=== PATIENT | male | born 1965 | race Hispanic/Latino ===

== ENCOUNTER 2018-02-12 11:30 | Emergency (ER) | payer SELFPAY ==
--- NOTE | 2018-02-12 13:59 | EKG ---
Test Date: 2018-02-12 Test Time: 11:55:25 [employer] Program Coordinator: LUIS M MEASUREMENT RESULTS: Intervals: Rate: 69 [place]: 160 QRSD: 98 QT: 378 QTc: 405 [place]: P: 76 [place]: 160 QRS: 85 T: 69 INTERPRETIVE STATEMENTS: Normal sinus rhythm Incomplete right bundle branch block Borderline ECG Compared to ECG 06/29/2016 00:47:11 No significant changes Electronically Signed On 02-12-18 13:58:34 CDT by Alexei Warner
[2018-02-12 14:21] LABS: Absolute Lymphocytes (CBC) 1.7 K/uL (0.7-4.9); Absolute Monocytes 0.6 K/uL (0.1-1.3); Absolute Neutrophil 5.1 K/uL (1.8-8.0); Basophils % 0.7 % (0-1.3); Eosinophils % 2.4 % (0-4.4); Hematocrit 41.7 % (39.6-49.0); Lymphocytes % 22.1 % (15.3-44.8); MCH 31.4 pg (27.0-35.0); MPV 8.7 fL (7.6-11.3); Monocytes % 7.8 % (3.3-12.3); RBC Red Blood Cell Count 4.59 M/uL (4.33-5.43)
[2018-02-12 14:50] LABS: ALT/SGPT 22 U/L (12-78); AST/SGOT 18 U/L (15-37); Albumin 3.7 g/dL (3.4-5.0); Alkaline Phosphatase 63 U/L (45-117); BUN Blood Urea Nitrogen 13 mg/dL (7-18); Bicarbonate 30 mmol/L (21-32); Bilirubin Direct 0.1 mg/dL (0-0.2); Bilirubin Total 0.6 mg/dL (0.2-1.0); CKMB Creatine Kinase MB < 1.0 ng/mL (0.3-3.6); Creatine Phosphokinase 43 U/L (39-308); Glucose Level 85 mg/dL (74-106); NT PRO-BNP 21 pg/mL (<125); Potassium 3.9 mmol/L (3.5-5.1); Protein, Total 7.7 g/dL (6.4-8.2); Sodium Level 142 mmol/L (136-145)
--- NOTE | 2018-02-12 15:01 | RAD REPORT ---
EXAM DESCRIPTION: RAD - Chest Single View - 02/12/2018 2:33 pm CLINICAL HISTORY: CHEST PAIN Chest pain. COMPARISON: Chest Single View dated 06/29/2016 FINDINGS: Portable technique limits examination quality. The lungs are grossly clear. The heart is normal in size. No displaced fractures. IMPRESSION: No acute intrathoracic process suspected.
--- NOTE | 2018-02-12 15:53 | ER ---
Nurse's Notes [facility] Name: Luiz Barboza Age: 53 yrs Sex: Male : 1965 Arrival Date: 02/12/2018 Time: 11:33 Bed 14 Private MD: Diagnosis: Essential (primary) hypertension Presentation: 02/12 11:54 Presenting complaint: Patient states: BP- 189/103 at home; reports lightheadness and hj dizzy; denies nausea and vomiting; denies hx of HTN;. Transition of care: patient was not received from another setting of care. Onset of symptoms was February 12, 2018. Risk Assessment: Do you want to hurt yourself or someone else? Patient reports no desire to harm self or others. Initial Sepsis Screen: Does the patient meet any 2 criteria? No. Patient's initial sepsis screen is negative. Does the patient have a suspected source of infection? No. Patient's initial sepsis screen is negative. Care prior to arrival: None. 11:54 Method Of Arrival: Ambulatory 11:54 Acuity: SILVA 3 hj Triage Assessment: 11:56 General: Appears in no apparent distress. uncomfortable, Behavior is calm, cooperative, hj appropriate for age. Pain: Denies pain. Historical: - Allergies: 11:56 No Known Allergies; hj - Home Meds: 11:56 None [Active]; hj - PMHx: 11:56 testicular cancer; hj - PSHx: 11:56 TESTICLUAR CANCER; hj - Immunization history:: Adult Immunizations up to date. - Social history:: Smoking status: Patient/guardian denies using tobacco, Patient/guardian denies using alcohol. - Ebola Screening: : Patient negative for fever greater than or equal to 101.5 degrees Fahrenheit, and additional compatible Ebola Virus Disease symptoms Patient denies exposure to infectious person Patient denies travel to an Ebola-affected area in the 21 days before illness onset. Screenin:56 Abuse screen: Denies threats or abuse. Denies injuries from another. Nutritional hj screening: No deficits noted. Tuberculosis screening: No symptoms or risk factors identified. Fall Risk None identified. Assessment: 14:08 General: Appears in no apparent distress. comfortable, Behavior is calm, cooperative, aj appropriate for age. Neuro: Level of Consciousness is awake, alert, obeys commands, Oriented to person, place, time, situation, Appropriate for age. Cardiovascular: Reports Chest pain and dizziness 2 days ago. Respiratory: Airway is patent Respiratory effort is even, unlabored, Respiratory pattern is regular, symmetrical. Derm: Skin is intact, is healthy with good turgor, Skin is pink, warm \T\ dry. normal. Vital Signs: 11:56 BP 140 / 92; Pulse 79; Resp 18; Temp 98.1(O); Pulse Ox 98% on R/A; Weight 58.97 kg; hj Height 5 ft. 5 in. (165.10 cm); Pain 0/10; 14:08 BP 145 / 85; Pulse 49; Resp 20; Pulse Ox 100% on R/A; aj 15:22 BP 152 / 79; Pulse 53; Resp 16; Pulse Ox 100% on R/A; aj 16:27 BP 148 / 83; Pulse 58; Resp 20; Pulse Ox 99% on R/A; aj 11:56 Body Mass Index 21.63 (58.97 kg, 165.10 cm) hj ED Course: 11:33 Patient arrived in ED. rg4 11:55 Triage completed. hj 11:56 Arm band placed on left wrist. hj 11:56 Patient has correct armband on for positive identification. Placed in gown. Bed in low hj position. Call light in reach. Side rails up X 1. Adult w/ patient. 11:58 EKG done, by crime lab technician. reviewed by Malik Tinajero MD. at1 13:57 Wendy Wills, RN is Primary Nurse. aj 14:02 Malik Tinajero MD is Attending Physician. sabrina 14:08 Inserted saline lock: 18 gauge in right forearm, using aseptic technique. Blood aj collected. 14:08 Initial lab(s) drawn, by id, sent to lab. aj 14:21 X-ray completed. Portable x-ray completed in exam room. Patient tolerated procedure jb2 well. 14:32 XRAY Chest (1 view) In Process Unspecified. EDMS 15:52 Alexei Warner MD is Referral Physician. [facility] 16:44 No provider procedures requiring assistance completed. IV discontinued, intact, aj bleeding controlled, No redness/swelling at site. Pressure dressing applied. Administered Medications: 16:13 Drug: Lisinopril 10 mg Route: PO; aj 16:45 Follow up: Response: No adverse reaction; Blood pressure is lowered aj Outcome: 15:53 Discharge ordered by . sabrina 16:44 Discharged to home ambulatory. asif 16:44 Condition: good 16:44 Discharge instructions given to patient, family, Instructed on discharge instructions, follow up and referral plans. Demonstrated understanding of instructions, follow-up care, medications, Prescriptions given X 1. 16:45 Patient left the ED. asif Signatures: Dispatcher [employer] EDWendy Pulliam, RN RN Malik Ayala MD MD cha Buechter, Jesse jb2 Wendy caro, tax technician EKG Tat1 Jenaro Martin RN RN Jasmin Arreola rg4
--- NOTE | 2018-02-12 15:53 | EDPHYS ---
Physician Documentation [facility] Name: Luiz Barboza Age: 53 yrs Sex: Male : 1965 Arrival Date: 02/12/2018 Time: 11:33 Bed 14 Private MD: ED Physician Malik Tinajero HPI: 02/12 15:50 This 53 yrs old Male presents to ER via Ambulatory with complaints of High sabrina Blood Pressure. 15:50 The patient has elevated blood pressure and discovered this at home. Onset: The sabrina symptoms/episode began/occurred 1 week(s) ago. Modifying factors: The symptoms are aggravated by activity, The symptoms are alleviated by remaining still. Associated signs and symptoms: The patient has no apparent associated signs or symptoms. Severity of symptoms: At its worst the blood pressure was mild, in the emergency department the blood pressure is unchanged. The patient has experienced similar episodes in the past, a few times. Historical: - Allergies: 11:56 No Known Allergies; hj - Home Meds: 11:56 None [Active]; hj - PMHx: 11:56 testicular cancer; hj - PSHx: 11:56 TESTICLUAR CANCER; hj - Immunization history:: Adult Immunizations up to date. - Social history:: Smoking status: Patient/guardian denies using tobacco, Patient/guardian denies using alcohol. - Ebola Screening: : Patient negative for fever greater than or equal to 101.5 degrees Fahrenheit, and additional compatible Ebola Virus Disease symptoms Patient denies exposure to infectious person Patient denies travel to an Ebola-affected area in the 21 days before illness onset. ROS: 15:52 Constitutional: Negative for fever, chills, and weight loss, Eyes: Negative for injury, sabrina pain, redness, and discharge, ENT: Negative for injury, pain, and discharge, Neck: Negative for injury, pain, and swelling, Cardiovascular: Negative for chest pain, palpitations, and edema, Respiratory: Negative for shortness of breath, cough, wheezing, and pleuritic chest pain, Abdomen/GI: Negative for abdominal pain, nausea, vomiting, diarrhea, and constipation, Back: Negative for injury and pain, : Negative for injury, bleeding, discharge, and swelling, MS/Extremity: Negative for injury and deformity, Skin: Negative for injury, rash, and discoloration, Neuro: Negative for headache, weakness, numbness, tingling, and seizure, Psych: Negative for depression, anxiety, suicide ideation, homicidal ideation, and hallucinations, Allergy/Immunology: Negative for hives, rash, and allergies, Endocrine: Negative for neck swelling, polydipsia, polyuria, polyphagia, and marked weight changes, Hematologic/Lymphatic: Negative for swollen nodes, abnormal bleeding, and unusual bruising. Exam: 15:52 Constitutional: This is a well developed, well nourished patient who is awake, alert, sabrina and in no acute distress. Head/Face: Normocephalic, atraumatic. Eyes: Pupils equal round and reactive to light, extra-ocular motions intact. Lids and lashes normal. Conjunctiva and sclera are non-icteric and not injected. Cornea within normal limits. Periorbital areas with no swelling, redness, or edema. ENT: Nares patent. No nasal discharge, no septal abnormalities noted. Tympanic membranes are normal and external auditory canals are clear. Oropharynx with no redness, swelling, or masses, exudates, or evidence of obstruction, uvula midline. Mucous membranes moist. Neck: Trachea midline, no thyromegaly or masses palpated, and no cervical lymphadenopathy. Supple, full range of motion without nuchal rigidity, or vertebral point tenderness. No Meningismus. Chest/axilla: Normal chest wall appearance and motion. Nontender with no deformity. No lesions are appreciated. Cardiovascular: Regular rate and rhythm with a normal S1 and S2. No gallops, murmurs, or rubs. Normal PMI, no JVD. No pulse deficits. Respiratory: Lungs have equal breath sounds bilaterally, clear to auscultation and percussion. No rales, rhonchi or wheezes noted. No increased work of breathing, no retractions or nasal flaring. Abdomen/GI: Soft, non-tender, with normal bowel sounds. No distension or tympany. No guarding or rebound. No evidence of tenderness throughout. Back: No spinal tenderness. No costovertebral tenderness. Full range of motion. Male : Normal genitalia with no discharge or lesions. Skin: Warm, dry with normal turgor. Normal color with no rashes, no lesions, and no evidence of cellulitis. MS/ Extremity: Pulses equal, no cyanosis. Neurovascular intact. Full, normal range of motion. Neuro: Awake and alert, GCS 15, oriented to person, place, time, and situation. Cranial nerves II-XII grossly intact. Motor strength 5/5 in all extremities. Sensory grossly intact. Cerebellar exam normal. Normal gait. Psych: Awake, alert, with orientation to person, place and time. Behavior, mood, and affect are within normal limits. Vital Signs: 11:56 BP 140 / 92; Pulse 79; Resp 18; Temp 98.1(O); Pulse Ox 98% on R/A; Weight 58.97 kg; hj Height 5 ft. 5 in. (165.10 cm); Pain 0/10; 14:08 BP 145 / 85; Pulse 49; Resp 20; Pulse Ox 100% on R/A; aj 15:22 BP 152 / 79; Pulse 53; Resp 16; Pulse Ox 100% on R/A; aj 16:27 BP 148 / 83; Pulse 58; Resp 20; Pulse Ox 99% on R/A; aj 11:56 Body Mass Index 21.63 (58.97 kg, 165.10 cm) MDM: 14:02 Patient medically screened. [facility] 15:53 Data reviewed: vital signs, nurses notes, EMS record, lab test result(s), EKG, [facility] radiologic studies, plain films. 02/12 14:00 Order name: Basic Metabolic Panel; Complete Time: 15:50 02/12 14:00 Order name: CBC with Diff; Complete Time: 15:50 02/12 14:00 Order name: Ckmb; Complete Time: 15:50 [facility] 02/12 14:00 Order name: CPK; Complete Time: 15:50 [facility] 02/12 14:00 Order name: LFT's; Complete Time: 15:50 [facility] 02/12 14:00 Order name: Magnesium; Complete Time: 15:50 [facility] 02/12 11:51 Order name: EKG; Complete Time: 11:51 02/12 14:00 Order name: NT PRO-BNP; Complete Time: 15:50 [facility] 02/12 14:00 Order name: PT-INR; Complete Time: 15:50 [facility] 02/12 14:00 Order name: Ptt, Activated; Complete Time: 15:50 [facility] 02/12 14:00 Order name: Troponin (emerg Dept Use Only); Complete Time: 15:50 [facility] 02/12 14:00 Order name: XRAY Chest (1 view); Complete Time: 15:50 5 02/12 14:00 Order name: Cardiac monitoring; Complete Time: 14:43 5 02/12 14:00 Order name: EKG - Nurse/Tech; Complete Time: 14:43 5 02/12 14:00 Order name: IV Saline Lock; Complete Time: 14:43 5 02/12 14:00 Order name: Labs collected and sent; Complete Time: 14:44 5 02/12 14:00 Order name: O2 Per Protocol; Complete Time: 14:44 5 02/12 14:00 Order name: O2 Sat Monitoring; Complete Time: 14:44 dm5 Administered Medications: 16:13 Drug: Lisinopril 10 mg Route: PO; aj 16:45 Follow up: Response: No adverse reaction; Blood pressure is lowered aj Disposition: 02/12/18 15:53 Discharged to Home. Impression: Essential (primary) hypertension. - Condition is Stable. - Discharge Instructions: Hypertension, Hypertension, [id number], How to Take Your Blood Pressure, [id number], Aspirin and Your Heart, Managing Your Hypertension. - Prescriptions for Lisinopril 10 mg Oral Tablet - take 1 tablet by ORAL route once daily; 20 tablet. - Work release form, Medication Reconciliation Form, Thank You Letter, Antibiotic Education, Prescription Opioid Use form. - Follow up: Private Physician; When: 2 - 3 days; Reason: Recheck today's complaints, Continuance of care, Re-evaluation by your physician. Follow up: Alexei Warner MD; When: 2 - 3 days; Reason: Recheck today's complaints, Re-evaluation by your physician. - Problem is new. - Symptoms have improved. Signatures: Dispatcher [employer] EDApril Coleman RN RN dm5 Wendy Wills RN RN aj Anderson, Corey, MD MD cha Joaquin, Henry RN RN Corrections: (The following items were deleted from the chart) 16:45 15:53 02/12/2018 15:53 Discharged to Home. Impression: Essential (primary) aj hypertension. Condition is Stable. Forms are Medication Reconciliation Form, Thank You Letter, Antibiotic Education, Prescription Opioid Use. Follow up: Private Physician; When: 2 - 3 days; Reason: Recheck today's complaints, Continuance of care, Re-evaluation by your physician. Follow up: Alexei Warner; When: 2 - 3 days; Reason: Recheck today's complaints, Re-evaluation by your physician. Problem is new. Symptoms have improved. sabrina
[2018-02-12] MEDS ORDERED: LISINOPRIL 10 MG TAB ONE (16:14)
== END 2018-02-12 16:45 | disposition home or self-care (01) ==
LOC: ER 11:30
DX: I10 Essential (primary) hypertension (principal); Z85.46 Personal history of malignant neoplasm of prostate
CPT/HCPCS: 36415; 71045; 80048; 80076; 82550; 82553; 83735; 83880; 84484; 85025; 85610; 85730; 93005; 99284

== ENCOUNTER 2018-02-13 23:19 | Emergency (ER) | payer SELFPAY ==
[2018-02-13] MEDS ORDERED: LORazepam 2 MG/ML VIAL ONE (23:47)
[2018-02-13 23:58] LABS: Absolute Lymphocytes (CBC) 2.5 K/uL (0.7-4.9); Absolute Neutrophil 7.8 K/uL (1.8-8.0); Basophils % 0.5 % (0-1.3); Eosinophils % 2.1 % (0-4.4); Hematocrit 40.1 % (39.6-49.0); Lymphocytes % 21.6 % (15.3-44.8); MCH 31.4 pg (27.0-35.0); MCV 90.4 fL (80-100); MPV 8.9 fL (7.6-11.3); Monocytes % 8.6 % (3.3-12.3); RBC Red Blood Cell Count 4.44 M/uL (4.33-5.43)
[2018-02-14 00:08] LABS: Protime INR 0.99
[2018-02-14] MEDS ORDERED: ASPIRIN 81 MG CHEWABLE TABLET ONE (00:09)
[2018-02-14 00:14] LABS: Albumin 3.9 g/dL (3.4-5.0); Bilirubin Direct 0.1 mg/dL (0-0.2); Bilirubin Total 0.4 mg/dL (0.2-1.0); Potassium 4.1 mmol/L (3.5-5.1); Protein, Total 7.9 g/dL (6.4-8.2)
--- NOTE | 2018-02-14 02:12 | ER ---
Nurse's Notes [facility] Name: Luiz Barboza Age: 53 yrs Sex: Male : 1965 Arrival Date: 02/13/2018 Time: 23:19 Bed 4 Private MD: Diagnosis: Chest pain, unspecified Presentation: 02/13 23:20 Presenting complaint: Patient states: that he was here a couple of days ago and dx with high blood pressure. Tonight at approx 2230 he started to have severe chest pain and shortness of breath. Denies any nausea or vomiting. The rx he was given 2 days ago he has not filled yet. Transition of care: patient was not received from another setting of care. Onset of symptoms was February 13, 2018 at 22:30. Risk Assessment: Do you want to hurt yourself or someone else? Patient reports no desire to harm self or others. Initial Sepsis Screen: Does the patient meet any 2 criteria? RR > 20 per min. HR > 90 bpm. Yes Does the patient have a suspected source of infection? No. Patient's initial sepsis screen is negative. Care prior to arrival: None. 23:20 Method Of Arrival: Ambulatory 23:20 Acuity: SILVA 3 fc Historical: - Allergies: 23:34 No Known Allergies; fc - Home Meds: 23:34 lisinopril 10 mg Oral tab 1 tab once daily [Active]; fc - PMHx: 23:34 testicular cancer; Hypertension; fc - PSHx: 23:34 cancer for testicular cancer; fc - Immunization history:: Last tetanus immunization: unknown. - Social history:: Smoking status: Patient uses tobacco products, denies chronic smoking, but will smoke occasionally, Patient/guardian denies using alcohol, street drugs. - Ebola Screening: : Patient negative for fever greater than or equal to 101.5 degrees Fahrenheit, and additional compatible Ebola Virus Disease symptoms Patient denies exposure to infectious person Patient denies travel to an Ebola-affected area in the 21 days before illness onset. Screenin:25 Abuse screen: Denies threats or abuse. Nutritional screening: No deficits noted. fc Tuberculosis screening: No symptoms or risk factors identified. Fall Risk None identified. Assessment: 23:35 General: Appears uncomfortable, Behavior is agitated, anxious. Pain: Complains of pain ea in mid-sternal area Pain does not radiate. Pain began 30 min ago. Is continuous. Neuro: Level of Consciousness is awake, alert, obeys commands, Oriented to person, place, time, situation. Cardiovascular: Heart tones S1 S2 present Patient's skin is warm and dry. Respiratory: Airway is patent Respiratory effort is even, unlabored, Respiratory pattern is regular, symmetrical, Breath sounds are clear bilaterally. GI: Abdomen is flat, non-distended, Bowel sounds present X 4 quads. : No signs and/or symptoms were reported regarding the genitourinary system. Derm: Skin is pink, warm \T\ dry. 02/14 00:14 Reassessment: ACUTE S/S RELIEVED. ALL CURRENT ORDERS IN PROCESS. bp 01:48 Reassessment: PT RESTING QUIETLY, MILD HYPOTENSION ON MONITOR. ACUTE S/S RELIEVED. bp 02:29 Reassessment: PT D/C HOME VIA W/C WITH FAMILY, DX WITH NONCARDIAC CHEST PAIN. bp Vital Signs: 02/13 23:20 BP 152 / 94; Pulse 116; Resp 24; Temp 98.8(O); Pulse Ox 100% on R/A; Weight 61.23 kg fc (R); Height 5 ft. 6 in. (167.64 cm) (R); Pain 10/10; 02/14 00:14 BP 105 / 59; Pulse 79; Resp 15; Pulse Ox 97% ; bp 00:37 BP 88 / 55; Pulse 66; Resp 14; Pulse Ox 96% ; bp 01:48 BP 85 / 53; Pulse 60; Resp 15; Pulse Ox 97% ; bp 02/13 23:20 Body Mass Index 21.79 (61.23 kg, 167.64 cm) fc ED Course: 02/13 22:25 Patient has correct armband on for positive identification. Placed in gown. Bed in low fc position. Call light in reach. orthodontic laboratory technician on. Pulse ox on. NIBP on. 22:25 No provider procedures requiring assistance completed. Patient maintains SpO2 fc saturation greater than 95% on room air. 22:35 Inserted saline lock: 20 gauge in right forearm, using aseptic technique. Blood ea collected. 23:19 Patient arrived in ED. ds1 23:20 Arm band placed on Patient placed in an exam room, on a stretcher. fc 23:30 Satya Robles PA is PHCP. jr8 23:30 Jelani Pacheco MD is Attending Physician. jr8 23:31 Triage completed. 23:37 Alvaro Dailey, RN is Primary Nurse. bp 23:39 X-ray completed. Portable x-ray completed in exam room. Patient tolerated procedure kw well. 23:40 XRAY Chest (1 view) In Process Unspecified. EDMS 02/14 02:30 IV discontinued, intact, bleeding controlled, No redness/swelling at site. Pressure bp dressing applied. Administered Medications: 02/13 23:46 Drug: Ativan 1 mg Route: IVP; Site: right forearm; bp 02/14 00:08 Follow up: Response: No adverse reaction; Marked relief of symptoms ea 00:08 Drug: Aspirin Chewable Tablet 324 mg Route: PO; ea 00:38 Follow up: Response: No adverse reaction bp Outcome: 02:11 Discharge ordered by MD. jr8 02:30 Discharged to home via wheelchair, with family. bp 02:30 Condition: stable 02:30 Discharge instructions given to patient, family, Instructed on discharge instructions, follow up and referral plans. Demonstrated understanding of instructions, follow-up care. 02:31 Patient left the ED. bp Signatures: Dispatcher [employer] EDCA Bree Anderson, RN RN Lakisha Hayes ds1 Malika Medina Josh, PA PA jr8 Maddy Lal, Alvaro Orellana RN, ea, RN RN bp
--- NOTE | 2018-02-14 02:12 | EDPHYS ---
Physician Documentation [facility] Name: Luiz Barboza Age: 53 yrs Sex: Male : 1965 Arrival Date: 02/13/2018 Time: 23:19 Bed 4 Private MD: ED Physician Jelani Pacheco HPI: 02/14 00:27 This 53 yrs old Male presents to ER via Ambulatory with complaints of Chest jr8 Pain, Shortness Of Breath. 00:27 The patient or guardian reports chest pain that is located primarily in the substernal jr8 area. Onset: acutely, today. The pain does not radiate. Associated signs and symptoms: Pertinent positives: shortness of breath. The chest pain is described as a pressure. Duration: The patient or guardian reports multiple episodes, that are intermittent, that wax and wane. Modifying factors: The symptoms are alleviated by nothing. the symptoms are aggravated by nothing. Severity of pain: At its worst the pain was moderate in the emergency department the pain is unchanged. The patient has not experienced similar symptoms in the past. The patient has not recently seen a physician. Patient stated that he has been moving. More stressed then normal. Had sudden onset chest pain and shortness of breath. Historical: - Allergies: 02/13 23:34 No Known Allergies; fc - Home Meds: 23:34 lisinopril 10 mg Oral tab 1 tab once daily [Active]; fc - PMHx: 23:34 testicular cancer; Hypertension; fc - PSHx: 23:34 cancer for testicular cancer; fc - Immunization history:: Last tetanus immunization: unknown. - Social history:: Smoking status: Patient uses tobacco products, denies chronic smoking, but will smoke occasionally, Patient/guardian denies using alcohol, street drugs. - Ebola Screening: : Patient negative for fever greater than or equal to 101.5 degrees Fahrenheit, and additional compatible Ebola Virus Disease symptoms Patient denies exposure to infectious person Patient denies travel to an Ebola-affected area in the 21 days before illness onset. ROS: 02/14 00:27 Eyes: Negative for injury, pain, redness, and discharge, ENT: Negative for injury, jr8 pain, and discharge, Neck: Negative for injury, pain, and swelling, Abdomen/GI: Negative for abdominal pain, nausea, vomiting, diarrhea, and constipation, Back: Negative for injury and pain, MS/Extremity: Negative for injury and deformity, Skin: Negative for injury, rash, and discoloration, Neuro: Negative for headache, weakness, numbness, tingling, and seizure. Cardiovascular: Positive for chest pain, Negative for edema, orthopnea, palpitations, paroxysmal nocturnal dyspnea. Respiratory: Positive for shortness of breath, Negative for cough, dyspnea on exertion, hemoptysis, orthopnea, pleurisy, sputum production, wheezing. Exam: 00:27 Eyes: Pupils equal round and reactive to light, extra-ocular motions intact. Lids and jr8 lashes normal. Conjunctiva and sclera are non-icteric and not injected. Cornea within normal limits. Periorbital areas with no swelling, redness, or edema. ENT: Nares patent. No nasal discharge, no septal abnormalities noted. Tympanic membranes are normal and external auditory canals are clear. Oropharynx with no redness, swelling, or masses, exudates, or evidence of obstruction, uvula midline. Mucous membranes moist. Neck: Trachea midline, no thyromegaly or masses palpated, and no cervical lymphadenopathy. Supple, full range of motion without nuchal rigidity, or vertebral point tenderness. No Meningismus. Cardiovascular: Regular rate and rhythm with a normal S1 and S2. No gallops, murmurs, or rubs. Normal PMI, no JVD. No pulse deficits. Respiratory: Lungs have equal breath sounds bilaterally, clear to auscultation and percussion. No rales, rhonchi or wheezes noted. No increased work of breathing, no retractions or nasal flaring. Abdomen/GI: Soft, non-tender, with normal bowel sounds. No distension or tympany. No guarding or rebound. No evidence of tenderness throughout. Back: No spinal tenderness. No costovertebral tenderness. Full range of motion. Skin: Warm, dry with normal turgor. Normal color with no rashes, no lesions, and no evidence of cellulitis. MS/ Extremity: Pulses equal, no cyanosis. Neurovascular intact. Full, normal range of motion. Neuro: Awake and alert, GCS 15, oriented to person, place, time, and situation. Cranial nerves II-XII grossly intact. Motor strength 5/5 in all extremities. Sensory grossly intact. Cerebellar exam normal. Normal gait. 00:27 Constitutional: The patient appears alert, awake, anxious. Vital Signs: 02/13 23:20 BP 152 / 94; Pulse 116; Resp 24; Temp 98.8(O); Pulse Ox 100% on R/A; Weight 61.23 kg fc (R); Height 5 ft. 6 in. (167.64 cm) (R); Pain 10/10; 02/14 00:14 BP 105 / 59; Pulse 79; Resp 15; Pulse Ox 97% ; bp 00:37 BP 88 / 55; Pulse 66; Resp 14; Pulse Ox 96% ; bp 01:48 BP 85 / 53; Pulse 60; Resp 15; Pulse Ox 97% ; bp 02/13 23:20 Body Mass Index 21.79 (61.23 kg, 167.64 cm) fc MDM: 02/13 23:30 Patient medically screened. 02/14 00:27 The patient was given aspirin in the Emergency Department. Data reviewed: vital signs, [facility] nurses notes, lab test result(s), EKG, radiologic studies, plain films. Data interpreted: Pulse oximetry: on room air is 97 %. Interpretation: normal. Counseling: I had a detailed discussion with the patient and/or guardian regarding: the historical points, exam findings, and any diagnostic results supporting the discharge/admit diagnosis, lab results, radiology results, the need for outpatient follow up, a family practitioner, to return to the emergency department if symptoms worsen or persist or if there are any questions or concerns that arise at home. 02/13 23:30 Order name: Basic Metabolic Panel; Complete Time: 00:23 02/13 23:30 Order name: CBC with Diff; Complete Time: 00:23 02/13 23:30 Order name: LFT's; Complete Time: 00:23 02/13 23:30 Order name: Magnesium; Complete Time: 00:23 02/13 23:30 Order name: NT PRO-BNP; Complete Time: 00:23 02/13 23:30 Order name: PT-INR; Complete Time: 00:23 02/13 23:30 Order name: Troponin (emerg Dept Use Only); Complete Time: 00:23 02/13 23:30 Order name: XRAY Chest (1 view) 02/13 23:30 Order name: EKG; Complete Time: 23:02/13 23:57 Order name: D-Dimer; Complete Time: 00:23 [facility] 02/14 01:04 Order name: Troponin (emerg Dept Use Only); Complete Time: 02:10 [facility] 02/13 23:30 Order name: Cardiac monitoring; Complete Time: 23:39 [facility] 02/13 23:30 Order name: EKG - Nurse/Tech; Complete Time: 23:43 [facility] 02/13 23:30 Order name: IV Saline Lock; Complete Time: 23:39 [facility] 02/13 23:30 Order name: Labs collected and sent; Complete Time: 23:39 [facility] 02/13 23:30 Order name: O2 Per Protocol; Complete Time: 23:39 [facility] 02/13 23:30 Order name: O2 Sat Monitoring; Complete Time: 23:38 [facility] Administered Medications: 02/13 23:46 Drug: Ativan 1 mg Route: IVP; Site: right forearm; bp 02/14 00:08 Follow up: Response: No adverse reaction; Marked relief of symptoms ea 00:08 Drug: Aspirin Chewable Tablet 324 mg Route: PO; ea 00:38 Follow up: Response: No adverse reaction bp Disposition: 07:23 Co-signature as Attending Physician, Jelani Pacheco MD I agree with the assessment and wa plan of care. Disposition: 02/14/18 02:11 Discharged to Home. Impression: Chest pain, unspecified. - Condition is Stable. - Discharge Instructions: Nonspecific Chest Pain. - Medication Reconciliation Form, Thank You Letter, Antibiotic Education, Prescription Opioid Use form. - Follow up: Private Physician; When: 2 - 3 days; Reason: Recheck today's complaints, Continuance of care, Re-evaluation by your physician. - Problem is new. - Symptoms have improved. Signatures: Dispatcher [employer] [facility] Bree Anderson, RN RN Satya Brennan PA PA jr8 Maddy Lal RN Jelani Sharma ea, MD MD wa Peltier, Brian RN RN bp Corrections: (The following items were deleted from the chart) 02/13 23:57 23:47 D-DIMER+[email or web address].BRZ ordered. [facility] 02/14 02:31 02:11 02/14/2018 02:11 Discharged to Home. Impression: Chest pain, unspecified. bp Condition is Stable. Forms are Medication Reconciliation Form, Thank You Letter, Antibiotic Education, Prescription Opioid Use. Follow up: Private Physician; When: 2 - 3 days; Reason: Recheck today's complaints, Continuance of care, Re-evaluation by your physician. Problem is new. Symptoms have improved. jr8
--- NOTE | 2018-02-14 08:29 | RAD REPORT ---
EXAM DESCRIPTION: RAD - Chest Single View - 02/13/2018 11:42 pm CLINICAL HISTORY: CHEST PAIN Chest pain. COMPARISON: Chest Single View dated 02/12/2018; Chest Single View dated 06/29/2016 FINDINGS: Portable technique limits examination quality. The lungs are grossly clear. The heart is normal in size. No displaced fractures. IMPRESSION: No acute intrathoracic process suspected.
--- NOTE | 2018-02-14 14:36 | EKG ---
Test Date: 2018-02-13 Test Time: 23:26:56 Sales Ledger Administrator: TANA MEASUREMENT RESULTS: Intervals: Rate: 112 PA: 190 QRSD: 94 QT: 324 QTc: 442 [place]: P: 73 PA: 190 QRS: 54 T: 66 INTERPRETIVE STATEMENTS: Sinus tachycardia Possible Left atrial enlargement Incomplete right bundle branch block Borderline ECG Compared to ECG 02/12/2018 11:55:25 Sinus rhythm no longer present Electronically Signed On 02-14-18 14:35:21 CDT by Alexei Warner
== END 2018-02-14 02:31 | disposition home or self-care (01) ==
LOC: ER 23:19
DX: R07.9 Chest pain, unspecified (principal); I10 Essential (primary) hypertension; Z72.0 Tobacco use; Z85.47 Personal history of malignant neoplasm of testis
CPT/HCPCS: 36415; 71045; 80048; 80076; 83735; 83880; 84484; 85025; 85379; 85610; 93005; 96374; 99285